=== PATIENT | male | born 1960 | race Caucasian/White ===

== ENCOUNTER 2018-07-08 17:40 | Outpatient (REF) | payer MEDICAID, SELFPAY ==
[2018-07-08 21:13] LABS: HCT 43.4 % (40.0-50.0); HGB 15.2 g/dL (13.5-17.5); Mean Corpuscular Hemoglobin 28.6 pg (27.0-33.0); Mean Corpuscular Volume 81.6 fL (80-95); Mean Platelet Volume 11.3 fL (8.0-11.0); Platelet Count 236 x1000/uL (130-400); RBC 5.32 m/cumm (4.50-6.00); RBC Distribution Width 13.5 % (11.8-14.1); White Blood Cell Count 8.42 k/cumm (4.4-10.8)
[2018-07-08 21:21] LABS: ALT 27 U/L (12-78); AST 15 U/L (15-37); Alkaline Phosphatase 89 U/L (46-116); Anion Gap 9.7 mmol/L (3-11); BUN 18 mg/dL (7-18); Bilirubin, Total 0.4 mg/dL (0.2-1.0); CO2 26.3 mmol/L (21.0-32.0); CREATININE 0.91 mg/dL (0.70-1.30); Calcium 9.1 mg/dL (8.5-10.1); Chloride 102 mmol/L (98-107); Cholesterol 203 mg/dL (50-200); Glucose 102 mg/dL (70-100); HDL Cholesterol 21 mg/dL (40-60); LDL CHOLESTEROL 130 mg/dL (<100); Magnesium 2.1 mg/dL (1.8-2.4); Potassium 4.1 mmol/L (3.5-5.1); Sodium 138 mmol/L (136-145); TSH 4.22 uIU/mL (0.358-3.74); Total Protein 7.3 g/dL (6.4-8.2); Triglyceride 424 mg/dL (30-150)
== END 2018-07-08 18:00 ==
LOC: NCHCN 17:40
PROVIDERS: PCP Family Medicine; Visit Provider Registered Nurse
DX: R07.9 Chest pain, unspecified (principal); Z00.00 Encounter for general adult medical examination without abnormal findings
CPT/HCPCS: 80053; 80061; 83721; 85027; 83735; 84443

== ENCOUNTER 2020-05-11 17:22 | Outpatient (REF) | payer MEDICARE, MEDICAID, SELFPAY ==
[2020-05-11 22:22] LABS: Cholesterol 214 mg/dL (<200); HDL Cholesterol 20 mg/dL (40-60); TSH (W/Ref FT4) 3.93 uIU/mL (0.36-3.74); Triglyceride 680 mg/dL (<150)
[2020-05-11 22:38] LABS: LDL CHOLESTEROL 133 mg/dL (<100)
[2020-05-11 23:07] LABS: FREE T4 0.98 ng/dL (0.76-1.46)
== END 2020-05-11 17:23 | disposition home or self-care (01) ==
LOC: NCHCN 17:22
PROVIDERS: PCP Family Medicine; Visit Provider Registered Nurse
DX: R73.03 Prediabetes (principal); R94.6 Abnormal results of thyroid function studies; E78.89 Other lipoprotein metabolism disorders
CPT/HCPCS: 80061; 83721; 83036; 84439; 84443

== ENCOUNTER 2021-03-08 19:11 | Outpatient (REF) | payer MEDICARE, MEDICAID, SELFPAY ==
[2021-03-08 21:55] LABS: Hemoglobin A1C 5.8 % (<5.7)
[2021-03-08 21:56] LABS: ALT 36 U/L (16-63); AST 16 U/L (15-37); Albumin 4.2 g/dL (3.4-5.0); Alkaline Phosphatase 79 U/L (46-116); Anion Gap 5.9 mmol/L (3-11); BUN 21 mg/dL (7-18); Bilirubin, Total 0.3 mg/dL (0.2-1.0); CO2 29.1 mmol/L (21.0-32.0); CREATININE 0.9 mg/dL (0.70-1.30); Calcium 8.8 mg/dL (8.5-10.1); Chloride 104 mmol/L (98-107); Cholesterol 235 mg/dL (<200); Glucose 102 mg/dL (74-106); HDL Cholesterol 26 mg/dL (40-60); Potassium 4.4 mmol/L (3.5-5.1); Sodium 139 mmol/L (136-145); Total Protein 7.4 g/dL (6.4-8.2); Triglyceride 519 mg/dL (<150)
[2021-03-08 22:07] LABS: LDL CHOLESTEROL 139 mg/dL (<100)
== END 2021-03-08 19:12 | disposition home or self-care (01) ==
LOC: NCHCN 19:11
PROVIDERS: PCP Family Medicine; Visit Provider Registered Nurse
DX: E66.9 Obesity, unspecified (principal); R73.03 Prediabetes; F32.9 Major depressive disorder, single episode, unspecified; E78.5 Hyperlipidemia, unspecified
CPT/HCPCS: 80053; 80061; 83721; 83036

== ENCOUNTER 2021-05-25 17:16 | Outpatient (REF) | payer MEDICARE, MEDICAID, SELFPAY | END 2021-05-25 17:17 | disposition home or self-care (01) | LOC: NCHCN 17:16 | PROVIDERS: PCP Family Medicine; Visit Provider Registered Nurse | DX: R39.9 Unspecified symptoms and signs involving the genitourinary system (principal) | CPT/HCPCS: 87077; 87086; 87186 ==

== ENCOUNTER 2021-12-15 18:44 | Outpatient (REF) | payer MEDICARE, MEDICAID, SELFPAY ==
[2021-12-15 21:21] LABS: Albumin 4.1 g/dL (3.4-5.0); BUN 26 mg/dL (7-18); Calcium 8.6 mg/dL (8.5-10.1); Glucose 130 mg/dL (74-106); Potassium 4.2 mmol/L (3.5-5.1)
[2021-12-15 21:33] LABS: Hemoglobin A1C 5.7 % (<5.7)
[2021-12-15 21:54] LABS: Alkaline Phosphatase 82 U/L (46-116); Anion Gap 12.5 mmol/L (3-11); Bilirubin, Total 0.3 mg/dL (0.2-1.0); CO2 21.5 mmol/L (21.0-32.0); CREATININE 0.8 mg/dL (0.70-1.30); Chloride 104 mmol/L (98-107); Cholesterol 194 mg/dL (<200); Estimated GFR 101.95 (mL/min/1.73m2); HDL Cholesterol 27 mg/dL (40-60); Sodium 138 mmol/L (136-145); Total Protein 7.6 g/dL (6.4-8.2); Triglyceride 543 mg/dL (<150)
[2021-12-15 22:09] LABS: LDL CHOLESTEROL 130 mg/dL (<100)
[2021-12-15 22:47] LABS: ALT 25 U/L (16-63); AST 21 U/L (15-37)
[2021-12-18 18:17] LABS: FREE T4 0.95 ng/dL (0.76-1.46)
[2021-12-18 22:28] LABS: T3, Total 136 ng/dL (97-169)
== END 2021-12-15 18:45 | disposition home or self-care (01) ==
LOC: NCHCN 18:44
PROVIDERS: PCP Family Medicine; Visit Provider Registered Nurse
DX: E78.5 Hyperlipidemia, unspecified (principal); R73.03 Prediabetes
CPT/HCPCS: 80053; 80061; 83721; 83036; 84439; 84480

== ENCOUNTER 2022-11-15 13:38 | Outpatient (REF) | payer MEDICARE, MEDICAID, SELFPAY ==
[2022-11-15 21:20] LABS: Anion Gap 10.3 mmol/L (3-11); BUN 24 mg/dL (7-18); CO2 22.7 mmol/L (21.0-32.0); CREATININE 0.8 mg/dL (0.70-1.30); Chloride 103 mmol/L (98-107); Cholesterol 228 mg/dL (<200); Estimated GFR 101.32 (mL/min/1.73m2); Glucose 112 mg/dL (74-106); HDL Cholesterol 28 mg/dL (40-60); Potassium 3.9 mmol/L (3.5-5.1); Sodium 136 mmol/L (136-145); Triglyceride 525 mg/dL (<150)
[2022-11-15 21:38] LABS: LDL CHOLESTEROL 141 mg/dL (<100)
[2022-11-15 21:41] LABS: Hemoglobin A1C 5.6 % (<5.7)
== END 2022-11-15 13:39 | disposition home or self-care (01) ==
LOC: NCHCN 13:38
PROVIDERS: PCP Family Medicine; Visit Provider Family Medicine
DX: R73.03 Prediabetes (principal); I10 Essential (primary) hypertension; E78.5 Hyperlipidemia, unspecified
CPT/HCPCS: 80048; 80061; 83721; 83036